=== PATIENT | female | born 1965 | race Caucasian/White ===

== ENCOUNTER 2019-11-07 20:46 | Emergency (ER) | payer MEDICAID ==
[~2019-11-07] VITALS: Ht 170.2 cm; Wt 90.9 kg
[2019-11-07 20:53] VITALS: BP 140/73
[2019-11-07] MEDS ORDERED: sulfamethoxazole/trimethoprim DS (800/160mg) tablet PO ONE (21:10)
[2019-11-07] MEDS ORDERED: SULF1TAB49 PO (21:13)
[2019-11-07] MEDS ORDERED: TETanus/Pertussis (Acell)/Diphther VAC/PF (Tdap-Adult) 0.5ml syringe IMVAC ONE (21:15)
== END 2019-11-07 21:25 | disposition home or self-care (01) ==
LOC: ER 20:47
DX: L02.413 Cutaneous abscess of right upper limb (principal); M79.631 Pain in right forearm; M79.89 Other specified soft tissue disorders; Z90.89 Acquired absence of other organs; Z98.890 Other specified postprocedural states; Z79.2 Long term (current) use of antibiotics
CPT/HCPCS: 90471; 90715; 99283

== ENCOUNTER 2020-09-09 23:18 | Emergency (ER) | payer MEDICAID ==
[~2020-09-09] VITALS: Ht 170.2 cm; Wt 95.5 kg
[2020-09-09 23:26] VITALS: BP 154/78
[2020-09-10] MEDS ORDERED: bacitracin 15gm ointment TP ONE
[2020-09-10] MEDS ORDERED: amox tr/potassium clavulanate 875/125mg TAB PO ONE
[2020-09-10] MEDS ORDERED: acetaminophen 325mg tablet PO ONE
[2020-09-10] MEDS ORDERED: ibuprofen tablet 400 MG TABLET PO ONE
[2020-09-10] MEDS ORDERED: ondansetron 4mg rapidly disintigrating tab PO ONE
[2020-09-10] MEDS ORDERED: AMOX-115 PO
[2020-09-10] MEDS ORDERED: TETanus/Pertussis (Acell)/Diphther VAC/PF (Tdap-Adult) 0.5ml syringe IMVAC ONE
[2020-09-10] MEDS ORDERED: ibuprofen 200mg tablet PO ONE (00:35)
[2020-09-10] MEDS ORDERED: ketorolac trometh inj. 60 MG/2 ML VIAL IM ONE (00:40)
== END 2020-09-10 01:10 | disposition home or self-care (01) ==
LOC: ER 23:19
DX: S61.232A Puncture wound without foreign body of right middle finger without damage to nail, initial encounter (principal); Z90.89 Acquired absence of other organs; Z98.890 Other specified postprocedural states; Z79.2 Long term (current) use of antibiotics; W54.0XXA Bitten by dog, initial encounter; Y93.89 Activity, other specified; Y92.89 Other specified places as the place of occurrence of the external cause; Y99.8 Other external cause status
CPT/HCPCS: 90471; 90715; 96372; 99284; J1885

== ENCOUNTER 2022-04-29 08:13 | Inpatient (IN) | payer MEDICAID ==
[~2022-04-29] VITALS: Ht 170.2 cm; Wt 90.0 kg
[2022-04-29 08:59] LABS: BASOPHILS % (AUTO) 0.4 % (0-1); EOSINOPHILS % (AUTO) 0.1 % (0-6); HEMATOCRIT 41.2 % (35.0-45.0); HEMOGLOBIN 13.9 g/dl (12.0-16.0); LYMPHOCYTES # (AUTO) 1.2 X10'3 (1.1-4.8); LYMPHOCYTES % (AUTO) 13.6 % (21-51); MEAN CORPUSCULAR HEMOGLOBIN 29.7 PG (27.0-31.0); MEAN CORPUSCULAR HGB CONC 33.8 g/dL (33.0-36.5); MEAN CORPUSCULAR VOLUME 87.9 FL (78-98); MEAN PLATELET VOLUME 7.7 FL (7.4-10.4); MONOCYTES # (AUTO) 0.7 X10'3 (0-0.9); MONOCYTES % (AUTO) 7.5 % (2-12); NEUTROPHILS # (AUTO) 7.1 X10'3 (1.8-7.7); NEUTROPHILS % (AUTO) 78.4 % (42-75); PLATELET COUNT 371 X10'3 (140-440); RED BLOOD COUNT 4.69 X10'6 (4.20-5.60); RED CELL DISTRIBUTION WIDTH 13.1 % (11.5-14.5)
[2022-04-29] MEDS ORDERED: ketorolac tromethamine 15mg/ml inj. IM ONE (09:00)
[2022-04-29 09:06] LABS: ALANINE AMINOTRANSFERASE 331 U/L (12-78); ALBUMIN 3.9 G/DL (3.4-5.0); ALKALINE PHOSPHATASE 206 IU/L (46-116); AMYLASE 24 U/L (25-115); ANION GAP 6 (8-16); ASPARTATE AMINO TRANSFERASE 430 U/L (10-37); BILIRUBIN,TOTAL 1.2 MG/DL (0.1-1.0); BLOOD UREA NITROGEN 10 MG/DL (7-18); BUN/CREATININE RATIO 12.5 (6.6-38.0); CALCIUM 9.2 MG/DL (8.5-10.1); CHLORIDE 101 MMOL/L (99-107); GLUCOSE 155 MG/DL (70-104); LIPASE 93 U/L (73-393); POTASSIUM 4.1 MMOL/L (3.5-5.1); SODIUM 135 MMOL/L (135-145); TOTAL CARBON DIOXIDE 27.6 MMOL/L (24-32); TOTAL PROTEIN 7.8 G/DL (6.4-8.2); eGFR 74 ML/MIN
[2022-04-29 09:20] LABS: CLARITY,URINE CLOUDY (Clear); COLOR,URINE YELLOW (Yellow); GLUCOSE, URINE NEGATIVE (Neg); KETONES,URINE NEGATIVE (Neg); LEUKOCYTE ESTERASE ,URINE NEGATIVE (Neg); NITRITES, URINE NEGATIVE (Neg); OCCULT BLOOD,URINE NEGATIVE (Neg); PROTEIN,URINE NEGATIVE (Neg)
[2022-04-29 09:21] LABS: UA COLLECTION TYPE CLN CATCH MIDSTREAM
[2022-04-29 09:22] LABS: URINE HCG NEGATIVE (NEG)
[2022-04-29 09:28] LABS: MUCUS STRANDS FEW /LPF (Neg); SQUAMOUS EPITHELIAL CELL,UR MODERATE /LPF (FEW)
[2022-04-29 09:32] LABS: AMORPHOUS PHOSPHATES 3+; BACTERIA,URINE FEW /HPF (Neg); RBC,URINE 0-2 /HPF (0-2); WBC,URINE NONE SEEN /HPF (0-4)
[2022-04-29] MEDS ORDERED: potassium Cl 40MEQ/1/2NS 520ml 520 ML IV PRN (12:05)
[2022-04-29] MEDS ORDERED: potassium Cl 20 mEq SR tablet PO PRN ×2 (12:05)
[2022-04-29] MEDS ORDERED: mag hydrox/Alum hydrox/simeth 30ml oral suspension PO PRN (12:05)
[2022-04-29] MEDS ORDERED: acetaminophen 325mg tablet PO PRN (12:05)
[2022-04-29] MEDS ORDERED: magnesium Cl slow-release 64mg tablet PO PRN (12:05)
[2022-04-29] MEDS ORDERED: magnesium 4gm in 100ml NS 100 ML IV PRN (12:05)
[2022-04-29] MEDS ORDERED: ondansetron/PF 4mg/2ml inj IV PRN (12:05)
[2022-04-29] MEDS ORDERED: magnesium hydroxide 30ml (MOM) UD suspension PO PRN (12:05)
[2022-04-29] MEDS ORDERED: HYDROmorphone/PF 0.2 MG/ML SYRINGE IV PRN (12:05)
[2022-04-29] MEDS: normal saline 1000ml 1,000 ML IV SCH ×2 (12:31→19:25)
[2022-04-29 12:56] LABS: MAGNESIUM 2.3 MG/DL (1.5-2.4)
--- NOTE | 2022-04-29 16:51 | NUR ---
Patient in room [facility] 348A. I have received report from DONNA SHARMA FROM ER and had the opportunity to ask questions and assume patient care.
[2022-04-29 19:00] VITALS: BP 109/60
--- NOTE | 2022-04-29 19:05 | NUR ---
Problems reprioritized. Patient report given, questions answered & plan of care reviewed with AIDAN Ward RN.
[2022-04-29] MEDS: HYDROmorphone inj. 0.5 MG/0.5 ML DISP.SYRIN IV PRN (19:25)
[2022-04-29] MEDS: docusate sod 100mg capsule PO SCH (19:27)
[2022-04-29] MEDS: K and/or MAG REPLACEMENT MC SCH (19:34)
[2022-04-29 22:00] VITALS: BP 103/55
[2022-04-30] VITALS (15 sets, daily range): BP systolic 100–137; BP diastolic 60–83
[2022-04-30] MEDS: HYDROmorphone inj. 0.5 MG/0.5 ML DISP.SYRIN IV PRN ×4 (03:21→20:07)
[2022-04-30] MEDS: normal saline 1000ml 1,000 ML IV SCH ×3 (04:56→18:40)
--- NOTE | 2022-04-30 05:58 | NUR ---
Problems reprioritized. Patient report given, questions answered & plan of care reviewed with DONNA Maria.
[2022-04-30 06:04] LABS: APTT 28 SECONDS (22-32)
--- NOTE | 2022-04-30 06:17 | NUR ---
Patient in room [facility]. I have received report from Heydi Flores RN and had the opportunity to ask questions and assume patient care.
[2022-04-30 06:19] LABS: BASOPHILS % (AUTO) 0.4 % (0-1); EOSINOPHILS % (AUTO) 0.4 % (0-6); HEMATOCRIT 38.9 % (35.0-45.0); HEMOGLOBIN 13.3 g/dl (12.0-16.0); LYMPHOCYTES # (AUTO) 0.7 X10'3 (1.1-4.8); MEAN CORPUSCULAR HEMOGLOBIN 30.3 PG (27.0-31.0); MEAN CORPUSCULAR HGB CONC 34.2 g/dL (33.0-36.5); MEAN CORPUSCULAR VOLUME 88.6 FL (78-98); MEAN PLATELET VOLUME 8.2 FL (7.4-10.4); MONOCYTES # (AUTO) 0.8 X10'3 (0-0.9); NEUTROPHILS # (AUTO) 8.6 X10'3 (1.8-7.7); NEUTROPHILS % (AUTO) 84.2 % (42-75); PLATELET COUNT 320 X10'3 (140-440); RED BLOOD COUNT 4.39 X10'6 (4.20-5.60); RED CELL DISTRIBUTION WIDTH 13.1 % (11.5-14.5); WHITE BLOOD COUNT 10.2 X10'3 (4.5-11.0)
[2022-04-30 06:39] LABS: ALANINE AMINOTRANSFERASE 430 U/L (12-78); ALKALINE PHOSPHATASE 302 IU/L (46-116); ANION GAP 11 (8-16); ASPARTATE AMINO TRANSFERASE 317 U/L (10-37); BILIRUBIN,TOTAL 5.1 MG/DL (0.1-1.0); BLOOD UREA NITROGEN 8 MG/DL (7-18); CHLORIDE 102 MMOL/L (99-107); GLUCOSE 121 MG/DL (70-104); MAGNESIUM 1.9 MG/DL (1.5-2.4); SODIUM 135 MMOL/L (135-145); TOTAL CARBON DIOXIDE 21.9 MMOL/L (24-32); eGFR 74 ML/MIN
[2022-04-30 06:54] LABS: ALBUMIN/GLOBULIN RATIO 0.9 (1.1-1.5); POTASSIUM 3.7 MMOL/L (3.5-5.1); TOTAL PROTEIN 6.5 G/DL (6.4-8.2)
[2022-04-30] MEDS: enoxaparin 40mg/0.4ml syringe SUBCUT SCH (08:00)
[2022-04-30] MEDS: docusate sod 100mg capsule PO SCH ×2 (08:00→20:06)
[2022-04-30] MEDS: K and/or MAG REPLACEMENT MC SCH ×2 (08:00→20:00)
[2022-04-30] MEDS ORDERED: pneumococcal 23-VAL P-sac vacc 25 mcg/0.5ml vial IMVAC ONE (11:00)
--- NOTE | 2022-04-30 12:31 | NUR ---
patient down to CT
--- NOTE | 2022-04-30 12:57 | NUR ---
patient back to room
[2022-04-30] MEDS ORDERED: NO HOME MEDS (14:54)
[2022-04-30] MEDS ORDERED: iohexol 300mg/ml 100ml inj. ONE (15:21)
[2022-04-30] MEDS ORDERED: MIDAZolam 1 MG/ML 5ML VIAL ONE (15:22)
[2022-04-30] MEDS ORDERED: FENTANYL CITRATE/PF 50 MCG/1 ML VIAL ONE (15:22)
[2022-04-30] MEDS ORDERED: levoFLOXACIN-Levaquin 500mg/D5 100 ML IV ONE (15:23)
[2022-04-30] MEDS ORDERED: glucagon, human recombinant 1mg kit ONE (15:23)
[2022-04-30] MEDS ORDERED: proCHLORperazine 10 MG/2 ml inj ONE (15:23)
[2022-04-30] MEDS ORDERED: LIDOcaine Viscous 15ml cup ONE (15:23)
--- NOTE | 2022-04-30 15:57 | NUR ---
Patient down to GI lab.
--- NOTE | 2022-04-30 18:14 | NUR ---
Problems reprioritized. Patient report given, questions answered & plan of care reviewed with DONNA Rivera.
[2022-05-01] VITALS (26 sets, daily range): BP systolic 103–161; BP diastolic 50–116
[2022-05-01] MEDS: HYDROmorphone inj. 0.5 MG/0.5 ML DISP.SYRIN IV PRN ×3 (03:42→23:06)
[2022-05-01] MEDS: normal saline 1000ml 1,000 ML IV SCH ×4 (04:05→16:58)
--- NOTE | 2022-05-01 05:58 | NUR ---
Problems reprioritized. Patient report given, questions answered & plan of care reviewed with DONNA SANTIAGO.
--- NOTE | 2022-05-01 06:22 | NUR ---
Patient in room [facility]. I have received report from DONNA Rivera and had the opportunity to ask questions and assume patient care.
[2022-05-01 06:34] LABS: BASOPHILS % (AUTO) 0.5 % (0-1); EOSINOPHILS # (AUTO) 0.1 X10'3 (0-0.9); EOSINOPHILS % (AUTO) 2.1 % (0-6); HEMATOCRIT 38.1 % (35.0-45.0); LYMPHOCYTES # (AUTO) 1.1 X10'3 (1.1-4.8); LYMPHOCYTES % (AUTO) 17.3 % (21-51); MEAN CORPUSCULAR HEMOGLOBIN 30.1 PG (27.0-31.0); MEAN CORPUSCULAR HGB CONC 34.1 g/dL (33.0-36.5); MEAN CORPUSCULAR VOLUME 88.3 FL (78-98); MEAN PLATELET VOLUME 8.4 FL (7.4-10.4); MONOCYTES % (AUTO) 15.6 % (2-12); NEUTROPHILS # (AUTO) 4.2 X10'3 (1.8-7.7); NEUTROPHILS % (AUTO) 64.5 % (42-75); PLATELET COUNT 296 X10'3 (140-440); RED BLOOD COUNT 4.32 X10'6 (4.20-5.60); RED CELL DISTRIBUTION WIDTH 13.4 % (11.5-14.5); WHITE BLOOD COUNT 6.5 X10'3 (4.5-11.0)
[2022-05-01 06:51] LABS: ALANINE AMINOTRANSFERASE 288 U/L (12-78); ALBUMIN 2.6 G/DL (3.4-5.0); ALBUMIN/GLOBULIN RATIO 0.7 (1.1-1.5); ALKALINE PHOSPHATASE 284 IU/L (46-116); ANION GAP 8 (8-16); ASPARTATE AMINO TRANSFERASE 150 U/L (10-37); BLOOD UREA NITROGEN 7 MG/DL (7-18); BUN/CREATININE RATIO 9.7 (6.6-38.0); CALCIUM 8.6 MG/DL (8.5-10.1); CHLORIDE 107 MMOL/L (99-107); CREATININE 0.72 MG/DL (0.40-0.90); GLUCOSE 95 MG/DL (70-104); POTASSIUM 3.5 MMOL/L (3.5-5.1); SODIUM 140 MMOL/L (135-145); TOTAL CARBON DIOXIDE 24.9 MMOL/L (24-32); TOTAL PROTEIN 6.4 G/DL (6.4-8.2); eGFR 83 ML/MIN
[2022-05-01 06:54] LABS: BILIRUBIN,TOTAL 3.5 MG/DL (0.1-1.0)
[2022-05-01 07:01] LABS: PLATELET ESTIMATE NORMAL; TOTAL CELLS COUNTED 100
[2022-05-01] MEDS: docusate sod 100mg capsule PO SCH ×2 (08:00→19:55)
[2022-05-01] MEDS: enoxaparin 40mg/0.4ml syringe SUBCUT SCH (08:00)
[2022-05-01] MEDS: K and/or MAG REPLACEMENT MC SCH ×2 (08:00→20:00)
[2022-05-01] MEDS ORDERED: pneumococcal 23-VAL P-sac vacc 25 mcg/0.5ml vial IMVAC ONE (11:00)
--- NOTE | 2022-05-01 12:38 | NUR ---
Patient not on antibiotics. Call out to Dr. Burks to notify him but no answer.
--- NOTE | 2022-05-01 12:56 | NUR ---
Patient down to OR.
[2022-05-01] MEDS ORDERED: BUPIVAcaine 0.5% inj/PF 30 ML ONE (13:00)
[2022-05-01] MEDS ORDERED: morphine 2 MG/ML inj. syringe IV PRN (13:10)
[2022-05-01] MEDS ORDERED: ringers solution, lacted 1,000 ML IV SCH (13:10)
[2022-05-01] MEDS ORDERED: hydrALAZINE 20mg/ml inj. IV PRN (13:10)
[2022-05-01] MEDS ORDERED: morphine 4 MG/ML inj SYRINge IV PRN (13:10)
[2022-05-01] MEDS ORDERED: ondansetron/PF 4mg/2ml inj IV PRN (13:10)
[2022-05-01] MEDS ORDERED: fentaNYL/PF 50MCG/1 ML 2ML syringe IV PRN ×2 (13:10)
[2022-05-01] MEDS ORDERED: labetalol 20mg/4ml (5mg/ml) syringe IV PRN (13:10)
[2022-05-01] MEDS ORDERED: rocuronium 10mg/ml inj IV ONE ×2 (13:31→14:04)
[2022-05-01] MEDS ORDERED: LIDOcaine 2% (20mg/ml) 5ml vial ONE (13:31)
[2022-05-01] MEDS ORDERED: midazolam 1 mg/ML 2ml injection ONE (13:31)
[2022-05-01] MEDS ORDERED: FENTANYL CITRATE/PF 50 MCG/1 ML VIAL ONE ×2 (13:31→13:54)
[2022-05-01] MEDS ORDERED: neostigmine methylsulfate 1 MG/ML 10ml vial ONE (13:31)
[2022-05-01] MEDS ORDERED: propofol inj 20 ML IV ONE (13:31)
[2022-05-01] MEDS ORDERED: glycopyrrolate 0.2mg/ml inj ONE (13:31)
[2022-05-01] MEDS ORDERED: ondansetron/PF 4mg/2ml inj ONE (13:31)
[2022-05-01] MEDS ORDERED: dexamethasone sod phosphate 10mg/ml inj ONE (13:32)
[2022-05-01] MEDS ORDERED: sevoflurane 250ml liquid IH ONE (13:32)
[2022-05-01] MEDS ORDERED: BUPIVAcaine 0.5% inj/PF 30 ml vial IJ ONE (13:55)
--- NOTE | 2022-05-01 14:21 | NUR ---
Received from OR via HOSPITAL BED, accompanied by Anesthesiologist DR TOLEDO and report given by Anesthesiologist. PT PRESENTS WITH PIV 20G LEFT AC, ABD DRESSING BAND AIDS WITH STERI STRIPS CDI. PT PAIN 12/20. PT MEDICATED FOR ABD PAIN. Addendum: 05/01/22 at 1520 by Alysia Levy RN, RN Amended: Links added.
[2022-05-01] MEDS ORDERED: ketorolac trometh. 30mg/ml inj. IV ONE (14:50)
--- NOTE | 2022-05-01 15:23 | NUR ---
PT SITTING IN BED EATING ICE CHIPS.
--- NOTE | 2022-05-01 16:11 | NUR ---
Report called to receiving nurse VON THOMPSON. Transferred via [facility]SO[facility] BED BACK TO ROOM 345B. BED IN LOW STEVE POSITION WITH CALL LIGHT IN REACH. PT Belongings WERE LEFT IN PT ROOM. CHART TAKEN TO NURSES STATION. Special Issues communicated to receiving nurse. Addendum: 05/01/22 at 1619 by Alysia Levy RN RN Amended: Links added.
--- NOTE | 2022-05-01 16:25 | NUR ---
Received patient back to room 345B. Patient alert and oriented with no complaints at this time. Patient able to ambulate to bathroom and back. Post vitals initiated. Patient asked for food. Chicken broth and jello given to patient.
--- NOTE | 2022-05-01 18:17 | NUR ---
Problems reprioritized. Patient report given, questions answered & plan of care reviewed with DONNA Rivera.
[2022-05-02] MEDS: normal saline 1000ml 1,000 ML IV SCH ×2 (00:05→04:03)
[2022-05-02 06:00] VITALS: BP 136/80
[2022-05-02 06:08] LABS: BASOPHILS % (AUTO) 0.1 % (0-1); EOSINOPHILS % (AUTO) 0 % (0-6); HEMATOCRIT 40.2 % (35.0-45.0); HEMOGLOBIN 12.9 g/dl (12.0-16.0); LYMPHOCYTES # (AUTO) 1.1 X10'3 (1.1-4.8); LYMPHOCYTES % (AUTO) 9.2 % (21-51); MEAN CORPUSCULAR HEMOGLOBIN 28.5 PG (27.0-31.0); MEAN CORPUSCULAR HGB CONC 32.2 g/dL (33.0-36.5); MEAN CORPUSCULAR VOLUME 88.7 FL (78-98); MEAN PLATELET VOLUME 8.1 FL (7.4-10.4); MONOCYTES # (AUTO) 1.4 X10'3 (0-0.9); MONOCYTES % (AUTO) 11.6 % (2-12); NEUTROPHILS # (AUTO) 9.6 X10'3 (1.8-7.7); NEUTROPHILS % (AUTO) 79.1 % (42-75); PLATELET COUNT 291 X10'3 (140-440); RED BLOOD COUNT 4.54 X10'6 (4.20-5.60); RED CELL DISTRIBUTION WIDTH 13.2 % (11.5-14.5); WHITE BLOOD COUNT 12.1 X10'3 (4.5-11.0)
[2022-05-02 06:22] LABS: ALANINE AMINOTRANSFERASE 245 U/L (12-78); ALBUMIN 2.7 G/DL (3.4-5.0); ALBUMIN/GLOBULIN RATIO 0.7 (1.1-1.5); ALKALINE PHOSPHATASE 277 IU/L (46-116); ANION GAP 10 (8-16); ASPARTATE AMINO TRANSFERASE 135 U/L (10-37); BILIRUBIN,TOTAL 1.6 MG/DL (0.1-1.0); BLOOD UREA NITROGEN 6 MG/DL (7-18); BUN/CREATININE RATIO 7.8 (6.6-38.0); CALCIUM 8.9 MG/DL (8.5-10.1); CHLORIDE 105 MMOL/L (99-107); CREATININE 0.77 MG/DL (0.40-0.90); GLUCOSE 145 MG/DL (70-104); MAGNESIUM 1.8 MG/DL (1.5-2.4); POTASSIUM 4.1 MMOL/L (3.5-5.1); SODIUM 140 MMOL/L (135-145); TOTAL CARBON DIOXIDE 25.5 MMOL/L (24-32); TOTAL PROTEIN 6.4 G/DL (6.4-8.2); eGFR 77 ML/MIN
--- NOTE | 2022-05-02 06:22 | NUR ---
Problems reprioritized. Patient report given, questions answered & plan of care reviewed with DONNA Carver.
--- NOTE | 2022-05-02 06:24 | NUR ---
Patient in room [facility]. I have received report from DONNA Rivera and had the opportunity to ask questions and assume patient care.
[2022-05-02] MEDS: enoxaparin 40mg/0.4ml syringe SUBCUT SCH (08:00)
[2022-05-02] MEDS: K and/or MAG REPLACEMENT MC SCH (08:00)
[2022-05-02] MEDS: docusate sod 100mg capsule PO SCH (08:08)
[2022-05-02] MEDS: HYDROmorphone inj. 0.5 MG/0.5 ML DISP.SYRIN IV PRN (08:12)
[2022-05-02 10:00] VITALS: BP 125/72
[2022-05-02] MEDS ORDERED: pneumococcal 23-VAL P-sac vacc 25 mcg/0.5ml vial IMVAC ONE (11:35)
[2022-05-02] MEDS ORDERED: HYDR-3965 PO ×2 (11:44→11:45)
[2022-05-02] MEDS ORDERED: LEVO-65 PO (11:47)
--- NOTE | 2022-05-02 12:54 | NUR ---
PAGER ID: [phone] MESSAGE: [phone] RE: Vijaya [place] room 345B - can we get the written prescription for [place]. Thank you
[2022-05-02] MEDS ORDERED: HYDROcodone/acetaminophen 5mg/325mg tablet PO ONE (12:55)
--- NOTE | 2022-05-02 14:51 | NUR ---
Patient was discharged at 1406 with instructions and verbalizing understanding of instructions, in wheelchair accompanied by nursing staff going home via private vehicle. All lines and tubes including PIV with cannula intact have been removed. Bedside education has been provided and all questions have been answered. Patient will make her own follow up appointment with Dr. Burks. Patient is stable and appropriate for discharge.
== END 2022-05-02 14:05 | disposition home or self-care (01) | DRG 263 ==
LOC: ER 08:14 → ED HOLD 12:07 → EDBEDREQ 16:38 → SUR 3N 17:00
PROVIDERS: ADMIT Family Medicine; ATTEND Family Medicine
PROC: 0FC98ZZ Extirpation of Matter from Common Bile Duct, Via Natural or Artificial Opening Endoscopic (ICD-10-PCS; 2022-04-30)
PROC: BW211ZZ Computerized Tomography (CT Scan) of Abdomen and Pelvis using Low Osmolar Contrast (ICD-10-PCS; 2022-04-30)
PROC: 0FT44ZZ Resection of Gallbladder, Percutaneous Endoscopic Approach (ICD-10-PCS; principal; 2022-05-01 13:32)
PROC: 3E0234Z Introduction of Serum, Toxoid and Vaccine into Muscle, Percutaneous Approach (ICD-10-PCS; 2022-05-02)
DX: K85.10 Biliary acute pancreatitis without necrosis or infection (principal); K80.71 Calculus of gallbladder and bile duct without cholecystitis with obstruction; F15.10 Other stimulant abuse, uncomplicated; Z20.822 Contact with and (suspected) exposure to COVID-19; R74.01 Elevation of levels of liver transaminase levels; Z23 Encounter for immunization; Z88.8 Allergy status to other drugs, medicaments and biological substances; Z71.51 Drug abuse counseling and surveillance of drug abuser
CPT/HCPCS: 36415; 43262; 43264; 71045; 74176; 76700; 80053; 81001; 81025; 82150; 82948; 83690; 83735; 84484; 85007; 85025; 85610; 85730; 87081; 87811; 90732; 93005; 96372; 99152; 99153; 99285; A4215; A4615; A4618; A4620; A7000; C1769; G0378; J0780; J1100; J1170; J1610; J1885; J1956; J2250; J2405; J2704; J2710; J3010; J3490; J7030; J7120; Q9967; S0020

== ENCOUNTER 2022-05-10 21:36 | Emergency (ER) | payer MEDICAID ==
[~2022-05-10] VITALS: Ht 170.2 cm; Wt 90.9 kg
[~2022-05-10 21:36] MED LIST: HYDR-3965 PO; LEVO-65 PO
[2022-05-11 00:40] LABS: BASOPHILS # (AUTO) 0.1 X10'3 (0-0.2); BASOPHILS % (AUTO) 0.9 % (0-1); EOSINOPHILS # (AUTO) 0.2 X10'3 (0-0.9); EOSINOPHILS % (AUTO) 1.6 % (0-6); HEMATOCRIT 41.2 % (35.0-45.0); HEMOGLOBIN 13.9 g/dl (12.0-16.0); LYMPHOCYTES # (AUTO) 3.1 X10'3 (1.1-4.8); LYMPHOCYTES % (AUTO) 30.1 % (21-51); MEAN CORPUSCULAR HEMOGLOBIN 29.7 PG (27.0-31.0); MEAN CORPUSCULAR HGB CONC 33.7 g/dL (33.0-36.5); MEAN CORPUSCULAR VOLUME 88.3 FL (78-98); MEAN PLATELET VOLUME 7.6 FL (7.4-10.4); MONOCYTES # (AUTO) 0.8 X10'3 (0-0.9); NEUTROPHILS # (AUTO) 6.1 X10'3 (1.8-7.7); NEUTROPHILS % (AUTO) 59.4 % (42-75); PLATELET COUNT 459 X10'3 (140-440); RED BLOOD COUNT 4.67 X10'6 (4.20-5.60); WHITE BLOOD COUNT 10.3 X10'3 (4.5-11.0)
[2022-05-11 00:57] LABS: ALANINE AMINOTRANSFERASE 76 U/L (12-78); ALBUMIN 3.5 G/DL (3.4-5.0); ALBUMIN/GLOBULIN RATIO 0.9 (1.1-1.5); ALKALINE PHOSPHATASE 195 IU/L (46-116); ANION GAP 8 (8-16); ASPARTATE AMINO TRANSFERASE 29 U/L (10-37); BILIRUBIN,TOTAL 0.5 MG/DL (0.1-1.0); BLOOD UREA NITROGEN 13 MG/DL (7-18); BUN/CREATININE RATIO 16.5 (6.6-38.0); CHLORIDE 103 MMOL/L (99-107); CREATININE 0.79 MG/DL (0.40-0.90); GLUCOSE 115 MG/DL (70-104); POTASSIUM 3.7 MMOL/L (3.5-5.1); SODIUM 138 MMOL/L (135-145); TOTAL CARBON DIOXIDE 26.8 MMOL/L (24-32); TOTAL PROTEIN 7.6 G/DL (6.4-8.2); eGFR 75 ML/MIN
[2022-05-11 01:48] VITALS: BP 125/71
== END 2022-05-11 02:05 | disposition home or self-care (01) ==
LOC: ER 21:36
DX: R10.9 Unspecified abdominal pain (principal); Z48.02 Encounter for removal of sutures; F15.90 Other stimulant use, unspecified, uncomplicated; Z90.49 Acquired absence of other specified parts of digestive tract; Z98.890 Other specified postprocedural states; Z90.89 Acquired absence of other organs; Z79.899 Other long term (current) drug therapy
CPT/HCPCS: 36415; 80053; 84145; 85025; 99283

== ENCOUNTER 2023-03-08 21:33 | Emergency (ER) | payer MEDICAID ==
[~2023-03-08] VITALS: Ht 170.2 cm; Wt 86.3 kg
--- NOTE | 2023-03-08 22:42 | NUR ---
MSE COMPLETE. PROVIDER STATES HE WISHES TO DISCHARGE FROM [facility]
[2023-03-08] MEDS ORDERED: ketorolac trometh inj. 60 MG/2 ML VIAL IM ONE (22:45)
[2023-03-08] MEDS ORDERED: NAPR-56 PO (22:49)
[2023-03-08] MEDS ORDERED: SULF1TAB49 PO (22:49)
[2023-03-08] MEDS ORDERED: CEPH-585 PO (22:49)
[2023-03-08 23:00] VITALS: BP 124/67; PULSE 87; RESP 16; TEMP 98.6; O2SAT 99
== END 2023-03-08 23:01 | disposition home or self-care (01) ==
LOC: ER 21:33
DX: N75.1 Abscess of Bartholin's gland (principal); F15.10 Other stimulant abuse, uncomplicated; Z98.890 Other specified postprocedural states; Z79.899 Other long term (current) drug therapy; Z88.8 Allergy status to other drugs, medicaments and biological substances
CPT/HCPCS: 96372; 99283; J1885

== ENCOUNTER 2023-12-27 17:53 | Emergency (ER) | payer MEDICAID ==
[~2023-12-27] VITALS: Ht 170.2 cm; Wt 91.7 kg
[~2023-12-27 17:53] MED LIST changes: +CEPH-585 PO; -HYDR-3965 PO; -LEVO-65 PO
[2023-12-27] MEDS: LIDOcaine/epinephrine/tetracaine TOPICAL sol 3 ML syringe TOP ONE ×2 (19:30→19:59)
[2023-12-27] MEDS: acetaminophen 325mg tablet PO ONE (19:32)
[2023-12-27] MEDS ORDERED: PREG50CA65 PO (19:38)
[2023-12-27 20:27] VITALS: BP 140/88; PULSE 85; RESP 15; TEMP 98.1; O2SAT 97
== END 2023-12-27 20:30 | disposition home or self-care (01) ==
LOC: ER 17:53
DX: S01.01XA Laceration without foreign body of scalp, initial encounter (principal); F15.90 Other stimulant use, unspecified, uncomplicated; Z88.6 Allergy status to analgesic agent; Z79.2 Long term (current) use of antibiotics; Z90.49 Acquired absence of other specified parts of digestive tract; Z98.890 Other specified postprocedural states; W19.XXXA Unspecified fall, initial encounter; Y93.89 Activity, other specified; Y92.89 Other specified places as the place of occurrence of the external cause; Y99.8 Other external cause status
CPT/HCPCS: 12001; 99283; J3490

== ENCOUNTER 2024-07-11 06:21 | Emergency (ER) | payer MEDICAID ==
[~2024-07-11 06:21] MED LIST changes: -CEPH-585 PO; +PREG50CA65 PO
== END 2024-07-11 07:38 | disposition left against medical advice (07) ==
LOC: ER 06:22
DX: M25.569 Pain in unspecified knee (principal); Z53.21 Procedure and treatment not carried out due to patient leaving prior to being seen by health care provider; Z88.8 Allergy status to other drugs, medicaments and biological substances